=== PATIENT | female | born 1940 | race Caucasian/White ===

== ENCOUNTER 2020-05-24 07:39 | Emergency (ER) | payer MEDICARE, OTHER ==
[~2020-05-24] VITALS: Ht 167.6 cm; Wt 79.4 kg
[~2020-05-24 07:39] MED LIST: METFORMIN HCL500 MG; PAROXETINE HCL20 MG; RAMIPRIL10 MG; SIMVASTATIN40 MG; TRIAMTERENE-HCTZ1 EA
[2020-05-24] MEDS ORDERED: ASPIRIN 81 MG CHEW TAB PO ONE (08:00)
[2020-05-24 08:16] LABS: BASOPHILS # (AUTO) 0.1 (0.0-0.1); BASOPHILS % 0.5 % (0.0-1.0); EOSINOPHILS # (AUTO) 0.1 (0.0-0.4); EOSINOPHILS % 0.5 % (0.0-6.0); HEMOGLOBIN 15.8 g/dL (12.0-16.0); LYMPHOCYTES # (AUTO) 2.2 (1.0-3.2); LYMPHOCYTES % 16.5 % (18.0-39.1); MEAN CORPUSCULAR HEMOGLOBIN 25.9 pg (28-32); MEAN CORPUSCULAR HGB CONC 32.9 g/dL (31-35); MEAN CORPUSCULAR VOLUME 78.6 fL (81-99); MONOCYTES # (AUTO) 0.8 (0.2-0.8); MONOCYTES % 6.2 % (4.4-11.3); NEUTROPHILS # (AUTO) 9.9 (2.1-6.9); NEUTROPHILS % 75.8 % (38.7-80.0); PLATELET COUNT 189 x10e3/uL (140-360); RED BLOOD COUNT 6.11 x10e6/uL (3.6-5.1)
[2020-05-24 08:27] LABS: INR 0.89; PARTIAL THROMBOPLASTIN TIME 27.2 seconds (23.8-35.5); PROTHROMBIN TIME 12.5 seconds (11.9-14.5)
[2020-05-24] MEDS ORDERED: ENALAPRILAT DIHYDRATE 1.25 MG/ML 2ML VIAL IV STA (08:28)
[2020-05-24] MEDS ORDERED: METOPROLOL TARTRATE 50 MG TAB PO ONE (08:30)
[2020-05-24 08:36] LABS: ALBUMIN 3.7 g/dL (3.5-5.0); ALBUMIN/GLOBULIN RATIO 1.1 (0.8-2.0); ANION GAP 21.7 mmol/L (8-16); CALCIUM 9.8 mg/dL (8.4-10.2); CREATININE, SERUM 1.38 mg/dL (0.57-1.11); POTASSIUM 3.7 mmol/L (3.5-5.1)
[2020-05-24 08:43] LABS: CREATINE KINASE MB 4.4 ng/mL (0-5.0)
--- NOTE | 2020-05-24 08:57 | Diagnostic Imaging Report ---
EXAMINATION: CHEST SINGLE (PORTABLE) INDICATION: Chest pain COMPARISON: None FINDINGS: LINES/TUBES:EKG leads overlie the chest. LUNGS:The lungs are well-inflated. 9 mm high density right upper lung nodule, likely a calcified granuloma. No focal consolidation or pulmonary edema. PLEURA:No pleural effusion or pneumothorax. MEDIASTINUM:The cardiomediastinal silhouette appears normal in size and shape. BONES/SOFT TISSUES:No acute osseous injury. ABDOMEN:No free air under the diaphragm. IMPRESSION: No focal pneumonia or pulmonary edema. Signed by: Brooks Orr MD on 05/24/2020 8:53 AM
--- NOTE | 2020-05-24 09:44 | Emergency Department Note ---
History of Present Illnes History of Present Illness Chief Complaint: Respiratory History of Present Illness This is a 79 year old female PATIENT IN FROM HOME WITH COMPLAINTS OF SHORTNESS OF BREATH X 3 WEEKS, WORSE WITH EXERTION. PATIENT DENIES CHEST PAIN, DENIES COUGH OR CONGESTION, DENIES FEVER, DENIES ANY TRAVEL. PATIENT APPEARS IN NO DISTRESS, RESP EVEN AND NONLABORED, O2 SATS 99% ON ROOM AIR. Historian: Patient Arrival Mode: Car Veneer Matcher Required: No Onset (how long ago): week(s) (3) Radiation: Reports non-radiation Severity: mild Onset quality: gradual Duration (how long): week(s) (3) Timing of current episode: intermittent Progression: waxing and waning Chronicity: new Context: Denies recent illness Relieving factors: none Exacerbating factors: movement Associated symptoms: Reports denies other symptoms, Reports weakness, Reports other (BAR, NO ORTHOPNEA/PND); Denies chest pain, Denies cough Treatments prior to arrival: none Past Medical/Family History Physician Review I have reviewed the patient's past medical and family history. Any updates have been documented here. Past Medical History Recent Fever: No Clinical Suspicion of Infectio: No New/Unexplained Change in Ment: No Past Medical History: Hypertension, Hyperlipedemia, Chronic Kidney Disease Other Medical History: HIGH CHOLESTEROL Past Surgical History: Hysterectomy Social History Smoking Cessation: Never Smoker Counseling Performed: No Alcohol Use: None Any Illegal Drug Use: No TB Exposure/Symptoms: No Physically hurt or threatened: No Family History Family history of heart diseas: No Other Last Tetanus: UNKNOWN Any Pre-Existing Lines (PICC,: No Review of Systems Review of Systems Constitutional: Reports as per HPI, Reports weakness EENTM: Reports no symptoms Cardiovascular: Reports no symptoms Respiratory: Reports as per HPI, Reports dyspnea, Reports dyspnea on exertion Gastrointestinal: Reports no symptoms Genitourinary: Reports no symptoms Musculoskeletal: Reports no symptoms Integumentary: Reports no symptoms Neurological: Reports no symptoms Psychological: Reports no symptoms Endocrine: Reports no symptoms Hematological/Lymphatic: Reports no symptoms Physical Exam Related Data Allergies: Coded Allergies: Oxycodone Terephthalate (Verified Allergy, Unknown, 05/24/20) oxycodone HCl (Verified Allergy, Unknown, 05/24/20) Triage Vital Signs Vital Signs Date Time Temp Pulse Resp B/P (MAP) Pulse Ox O2 Delivery O2 Flow Rate FiO2 05/24/20 07:46 98.1 88 22 181/100 99 Room Air Vital signs reviewed: Yes Physical Exam CONSTITUTIONAL Constitutional: Present well-developed, Present well-nourished HENT HENT: Present normocephalic, Present atraumatic, Present oropharynx clear/moist, Present nose normal HENT L/R: Present left ext ear normal, Present right ext ear normal EYES Eyes: Reports PERRL, Reports conjunctivae normal NECK Neck: Present ROM normal PULMONARY Pulmonary: Present effort normal, Present breath sounds normal; Absent respiratory distress, Absent rales, Absent rhonchi, Absent chest tenderness CARDIOVASCULAR Cardiovascular: Present regular rhythm, Present heart sounds normal, Present capillary refill normal, Present normal rate, Present LLE edema (TRACE), Present RLE edema (TRACE) GASTROINTESTINAL Abdominal: Present soft, Present nontender, Present bowel sounds normal; Absent tender GENITOURINARY Genitourinary: Present exam deferred SKIN Skin: Present warm, Present dry MUSCULOSKELETAL Musculoskeletal: Present ROM normal NEUROLOGICAL Neurological: Present alert, Present oriented x 3, Present no gross motor or sensory deficits PSYCHOLOGICAL Psychological: Present mood/affect normal, Present judgement normal Results Laboratory Result Diagram: 05/24/20 0800 05/24/20 0800 Laboratory Laboratory Tests Test 05/24/20 08:00 White Blood Count 13.12 x10e3/uL (4.8-10.8) Red Blood Count 6.11 x10e6/uL (3.6-5.1) Hemoglobin 15.8 g/dL (12.0-16.0) Hematocrit 48.0 % (34.2-44.1) Mean Corpuscular Volume 78.6 fL (81-99) Mean Corpuscular Hemoglobin 25.9 pg (28-32) Mean Corpuscular Hemoglobin Concent 32.9 g/dL (31-35) Red Cell Distribution Width 17.0 % (11.7-14.4) Platelet Count 189 x10e3/uL (140-360) Neutrophils (%) (Auto) 75.8 % (38.7-80.0) Lymphocytes (%) (Auto) 16.5 % (18.0-39.1) Monocytes (%) (Auto) 6.2 % (4.4-11.3) Eosinophils (%) (Auto) 0.5 % (0.0-6.0) Basophils (%) (Auto) 0.5 % (0.0-1.0) Neutrophils # (Auto) 9.9 (2.1-6.9) Lymphocytes # (Auto) 2.2 (1.0-3.2) Monocytes # (Auto) 0.8 (0.2-0.8) Eosinophils # (Auto) 0.1 (0.0-0.4) Basophils # (Auto) 0.1 (0.0-0.1) Absolute Immature Granulocyte (auto 0.07 x10e3/uL (0-0.1) Prothrombin Time 12.5 seconds (11.9-14.5) Prothromb Time International Ratio 0.89 Activated Partial Thromboplast Time 27.2 seconds (23.8-35.5) Sodium Level 140 mmol/L (136-145) Potassium Level 3.7 mmol/L (3.5-5.1) Chloride Level 105 mmol/L (98-107) Carbon Dioxide Level 17 mmol/L (22-29) Anion Gap 21.7 mmol/L (8-16) Blood Urea Nitrogen 24 mg/dL (7-26) Creatinine 1.38 mg/dL (0.57-1.11) Estimat Glomerular Filtration Rate 37 ML/MIN (60-) BUN/Creatinine Ratio 17 (6-25) Glucose Level 227 mg/dL (74-118) Calcium Level 9.8 mg/dL (8.4-10.2) Total Bilirubin 0.7 mg/dL (0.2-1.2) Aspartate Amino Transf (AST/SGOT) 15 IU/L (5-34) Alanine Aminotransferase (ALT/SGPT) 16 IU/L (0-55) Alkaline Phosphatase 78 IU/L (40-150) Creatine Kinase 47 IU/L (29-168) Creatine Kinase MB 4.40 ng/mL (0-5.0) Troponin I 0.019 ng/mL (0-0.300) B-Type Natriuretic Peptide 489.7 pg/mL (0-100) Total Protein 7.2 g/dL (6.5-8.1) Albumin 3.7 g/dL (3.5-5.0) Globulin 3.5 g/dL (2.3-3.5) Albumin/Globulin Ratio 1.1 (0.8-2.0) Lab results reviewed: Yes Imaging Imaging results reviewed: Yes Impressions EXAMINATION: CHEST SINGLE (PORTABLE) INDICATION: Chest pain COMPARISON: None FINDINGS: LINES/TUBES:EKG leads overlie the chest. LUNGS:The lungs are well-inflated. 9 mm high density right upper lung nodule, likely a calcified granuloma. No focal consolidation or pulmonary edema. PLEURA:No pleural effusion or pneumothorax. MEDIASTINUM:The cardiomediastinal silhouette appears normal in size and shape. BONES/SOFT TISSUES:No acute osseous injury. ABDOMEN:No free air under the diaphragm. IMPRESSION: No focal pneumonia or pulmonary edema. Signed by: Brooks Orr MD on 05/24/2020 8:53 AM Procedures 12 Lead ECG Interpretation ECG Interpretation : ECG: ECG 1 Veneer Matcher: Interpreted by ED physician Date: May 24, 2020 Time: 07:45 Rhythm: sinus rhythm QRS axis: right T wave inversion: V1, V2, V3, V4 T waves flattening: II, III, aVF, V5 Clinical Impression: abnormal ECG Additional Comments PROLONGED QT Assessment & Plan Medical Decision Making MDM SOB/BAR X 3 WEEKS, NO CP - CHECK CBC, CHEM, ECG, CARDIACS, BNP, CXR - R/O STEMI, NSTEMI, CHF, PNEUMONIA Reassessment Reassessment BNP ELEVATED - STAT ECHO ORDERED - DR Yeni GONSALEZ READ ECHO NORMAL (VERBAL REPORT) AND SAW PT. WE DO NOT KNOW WHY PT FEELS SOB BUT SHE LOOKS GOOD, VSS AND O2 SAT NORMAL, NL CXR - I EXPLAINED TO PT THAT DUE TO HURRICANE CONNIE WE HAVE NO BEDS AVAILABLE HERE AND IF ADMITTED WE WOULD NEED TO TRANSFER TO ANOTHER [facility] - PT WANTS TO GO HOME - F/U PCP AUDREY AND DR Yeni GONSALEZ, TAKE MEDS DIRECTED Assessment & Plan Final Impression: (1) Dyspnea Depart Disposition: HOME, SELF-CARE Last Vital Signs Date Time Temp Pulse Resp B/P (MAP) Pulse Ox O2 Delivery O2 Flow Rate FiO2 05/24/20 08:43 75 25 123/67 97 Room Air 05/24/20 08:06 98.1 Home Meds Reported Medications Paroxetine Hcl (PAROXETINE HCL) 20 Mg Tablet, DAILY 05/01/13 Simvastatin (SIMVASTATIN) 40 Mg Tablet, DAILY 05/01/13 Ramipril (RAMIPRIL) 10 Mg Capsule, DAILY 05/01/13 Triamterene/Hctz (TRIAMTERENE-HCTZ 37.5-25 MG TB) 1 Ea Tab, DAILY 05/01/13 Metformin Hcl (METFORMIN HCL) 500 Mg Tablet, BID 05/01/13 Medications in the ED Aspirin 81 mg PRN ONCE PO ; Start 05/24/20 at 08:00; Stop 05/24/20 at 08:01 Metoprolol Tartrate 50 mg ONCE ONCE PO ; Start 05/24/20 at 08:30; Stop 05/24/20 at 08:31 ANGELES ROMAN MD May 24, 2020 09:44
== END 2020-05-24 10:52 | disposition home or self-care (01) ==
LOC: ER 07:43
DX: R06.00 Dyspnea, unspecified (principal); I10 Essential (primary) hypertension; E78.5 Hyperlipidemia, unspecified; N18.9 Chronic kidney disease, unspecified; E78.00 Pure hypercholesterolemia, unspecified
CPT/HCPCS: 36415; 71045; 80053; 82550; 82553; 83880; 84484; 85025; 85610; 85730; 93005; 93306; 99284; U0002

== ENCOUNTER 2020-06-05 09:11 | Inpatient (IN) | payer MEDICARE, OTHER ==
[~2020-06-05] VITALS: Ht 167.6 cm; Wt 79.4 kg
[2020-06-05] MEDS ORDERED: CEFEPIME 1GM/NS 0.9% 50 ML 50 ML IV SCH (09:37)
--- NOTE | 2020-06-05 09:45 | NUR ---
asked charge nurse to call for venous doppler. dye house vat worker then notified of venous doppler order.
[2020-06-05 09:47] LABS: BASOPHILS # (AUTO) 0.1 (0.0-0.1); BASOPHILS % 0.6 % (0.0-1.0); EOSINOPHILS # (AUTO) 0.1 (0.0-0.4); EOSINOPHILS % 0.8 % (0.0-6.0); HEMATOCRIT 48.3 % (34.2-44.1); HEMOGLOBIN 15.7 g/dL (12.0-16.0); LYMPHOCYTES # (AUTO) 1.8 (1.0-3.2); LYMPHOCYTES % 17.7 % (18.0-39.1); MEAN CORPUSCULAR HEMOGLOBIN 25.9 pg (28-32); MEAN CORPUSCULAR HGB CONC 32.5 g/dL (31-35); MEAN CORPUSCULAR VOLUME 79.7 fL (81-99); MONOCYTES # (AUTO) 0.8 (0.2-0.8); MONOCYTES % 7.5 % (4.4-11.3); NEUTROPHILS # (AUTO) 7.5 (2.1-6.9); NEUTROPHILS % 72.9 % (38.7-80.0); PLATELET COUNT 251 x10e3/uL (140-360); RED BLOOD COUNT 6.06 x10e6/uL (3.6-5.1); RED CELL DISTRIBUTION WIDTH 16.9 % (11.7-14.4)
--- NOTE | 2020-06-05 09:51 | NUR ---
Pt notifed of need for urine per md order. Pt unable to void at this time.
--- NOTE | 2020-06-05 09:54 | NUR ---
notified pt unable to void, states to wait 15 mins and ask again.
[2020-06-05 09:57] LABS: INR 0.83; PROTHROMBIN TIME 11.8 seconds (11.9-14.5)
--- NOTE | 2020-06-05 10:00 | NUR ---
venous doppler tech at bedside.
--- NOTE | 2020-06-05 10:04 | Emergency Department Note ---
History of Present Illnes History of Present Illness Chief Complaint: General Medicine Complaints History of Present Illness This is a 79 year old female arrived to the ED with complaints of right lower extremity swelling and increased warmth. Pt states she is concerned of her potassium being low as well. Historian: Patient Arrival Mode: Car Onset (how long ago): day(s) Severity: mild Onset quality: gradual Duration (how long): day(s) Progression: worsening Chronicity: new Relieving factors: none Exacerbating factors: none Past Medical/Family History Physician Review I have reviewed the patient's past medical and family history. Any updates have been documented here. Past Medical History Recent Fever: No Clinical Suspicion of Infectio: No New/Unexplained Change in Ment: No Past Medical History: Hypertension, Hyperlipedemia, Chronic Kidney Disease Other Medical History: HIGH CHOLESTEROL Past Surgical History: Hysterectomy Social History Smoking Cessation: Never Smoker Other Last Tetanus: UNKNOWN Review of Systems Review of Systems Constitutional: Reports no symptoms EENTM: Reports no symptoms Cardiovascular: Reports no symptoms Respiratory: Reports no symptoms Gastrointestinal: Reports no symptoms Genitourinary: Reports no symptoms Musculoskeletal: Reports as per HPI, Reports joint swelling Integumentary: Reports no symptoms Neurological: Reports no symptoms Psychological: Reports no symptoms Endocrine: Reports no symptoms Hematological/Lymphatic: Reports no symptoms Physical Exam Related Data Allergies: Coded Allergies: Oxycodone Terephthalate (Verified Allergy, Unknown, 05/24/20) oxycodone HCl (Verified Allergy, Unknown, 05/24/20) Triage Vital Signs Vital Signs Date Time Temp Pulse Resp B/P (MAP) Pulse Ox O2 Delivery O2 Flow Rate FiO2 06/05/20 09:36 98.1 61 14 165/83 100 Room Air Vital signs reviewed: Yes Physical Exam CONSTITUTIONAL Constitutional: Present well-developed, Present well-nourished HENT HENT: Present normocephalic, Present atraumatic, Present oropharynx alyce ar/moist, Present nose normal HENT L/R: Present left ext ear normal, Present right ext ear normal EYES Eyes: Reports PERRL, Reports conjunctivae normal NECK Neck: Present ROM normal PULMONARY Pulmonary: Present effort normal, Present breath sounds normal CARDIOVASCULAR Cardiovascular: Present regular rhythm, Present heart sounds normal, Present capillary refill normal, Present normal rate GASTROINTESTINAL Abdominal: Present soft, Present nontender, Present bowel sounds normal GENITOURINARY Genitourinary: Present exam deferred SKIN Skin: Present warm, Present dry MUSCULOSKELETAL Musculoskeletal: Present tenderness NEUROLOGICAL Neurological: Present alert, Present oriented x 3, Present no gross motor or sensory deficits PSYCHOLOGICAL Psychological: Present mood/affect normal, Present judgement normal Results Laboratory Lab results reviewed: Yes Assessment & Plan Medical Decision Making CARLEY 79 yo F arrived to the ED with complaints of rt lower extremity swelling- pt states symptoms started gradually. Pt states she's also concerned about her potassium level. Assessment & Plan Final Impression: (1) Dyspnea (2) Cellulitis Last Vital Signs Date Time Temp Pulse Resp B/P (MAP) Pulse Ox O2 Delivery O2 Flow Rate FiO2 06/05/20 09:36 98.1 61 14 165/83 100 Room Air Home Meds Reported Medications Paroxetine Hcl (PAROXETINE HCL) 20 Mg Tablet, DAILY 05/01/13 Simvastatin (SIMVASTATIN) 40 Mg Tablet, DAILY 05/01/13 Ramipril (RAMIPRIL) 10 Mg Capsule, DAILY 05/01/13 Triamterene/Hctz (TRIAMTERENE-HCTZ 37.5-25 MG TB) 1 Ea Tab, DAILY 05/01/13 Metformin Hcl (METFORMIN HCL) 500 Mg Tablet, BID 05/01/13 Medications in the ED Cefepime HCl 50 ml @ 100 mls/hr Q24H STAT IV ; Start 06/05/20 at 09:37; Stop 06/05/20 at 10:06; Status AUSTEN PATRICK, Jun 05, 2020 10:04
[2020-06-05 10:07] LABS: ALBUMIN 4.5 g/dL (3.5-5.0); ALBUMIN/GLOBULIN RATIO 1.4 (0.8-2.0); ANION GAP 18.3 mmol/L (8-16); CREATININE, SERUM 1.37 mg/dL (0.57-1.11); POTASSIUM 4.3 mmol/L (3.5-5.1)
[2020-06-05] MEDS ORDERED: ENOXAPARIN SODIUM INJ 100 MG/ML SYR SC SCH (10:15)
--- OUTSIDE RECORDS SUMMARY | 2020-06-05 10:16 | XMS REPORT | Continuity of Care Document ---
Author Author [facility] Organization [facility] Address [address] [place] [address] Phone Unavailable Care Team Providers [facility] [employer] Teacher Name Role Phone Dana ROMAN Attphys Unavailable Problems This patient has no known problems. Allergies, Adverse Reactions, Alerts This patient has no known allergies or adverse reactions. Medications This patient has no known medications. Procedures This patient has no known procedures. Results Test Description Test Time Test Comments Results Result Comments Source CHEST SINGLE (PORTABLE) 2020-05-24 08:50:00 [place] [address] Patient Name: ANDER RAO MR #: [id number] : 1940 Age/Sex: 79/F Req #: [id number] Adm Physician: Ordered by: ANGELES ROMAN MD Report #: [id number] Location: ER Room/Bed: Procedure: [id number] DX/CHEST SINGLE (PORTABLE) Exam Date: 05/24/20 Exam Time: 0820 REPORT STATUS: Signed EXAMINATION: CHEST SINGLE (PORTABLE) INDICATION: Chest pain COMPARISON: None FINDINGS: LINES/TUBES:EKG leads overlie the chest. LUNGS:The lungs are well-inflated. 9 mm high density right upper lung nodule, likely a calcified granuloma. No focal consolidation or pulmonary edema. PLEURA:No pleural effusion or pneumothorax. MEDIASTINUM:The cardiomediastinal silhouette appears normal in size and shape. BONES/SOFT TISSUES:No acute osseous injury. ABDOMEN:No free air under the diaphragm. IMPRESSION: No focal pneumonia or pulmonary edema. Signed by: Chaitanya Lund MD on 05/24/2020 8:53 AM Dictated By: CHAITANYA LUND MD 2 Transcribed By: SIDNEY on 05/24/20852 COPY TO: ANGELES ROMAN MD
[2020-06-05 10:18] LABS: B-TYPE NATRIURETIC PEPTIDE2 183.4 pg/mL (0-100)
--- NOTE | 2020-06-05 10:23 | NUR ---
venous doppler tech states blood clot noted, notified and went to talk with pt.
[2020-06-05] MEDS ORDERED: ENOXAPARIN INJ 80 MG/0.8 ML SYR SC ONE ×2 (10:25→21:49)
--- NOTE | 2020-06-05 10:28 | NUR ---
Inquired to md pt concerns if blood clot could be in chest d/t finding of dvt. Pt states here previously for sob and had no findings to explain and was discharged with f/u with dr palma. Md states no d/t no tachycardia, no hypoxia, no tachypnenia. Pt inquired to rn, and explained md answer to pt. pt states verbal understanding.
[2020-06-05 10:37] LABS: CREATINE KINASE MB 4.6 ng/mL (0-5.0)
--- NOTE | 2020-06-05 10:41 | NUR ---
notified polygraph technician of xray cancel. Pt going to go home per Dr. Soto.
[2020-06-05 10:43] LABS: CLARITY,URINE SL CLOUDY (CLEAR); COLOR,URINE YELLOW (YELLOW); LEUKOCYTE ESTERASE ,URINE NEGATIVE (NEGATIVE); NITRITE,URINE NEGATIVE (NEGATIVE)
[2020-06-05 10:44] LABS: BACTERIA,URINE RARE /HPF; BILIRUBIN,URINE NEGATIVE (NEGATIVE); EPITHELIAL CELLS,URINE FEW /LPF; KETONES,URINE NEGATIVE (NEGATIVE); PROTEIN,URINE DIPSTICK NEGATIVE (NEGATIVE); RBC,URINE 0-5 /HPF (0-5); URINE UROBILINOGEN 0.2 mg/dL (0.2 - 1); WBC,URINE (MAN) 0-5 /HPF (0-5)
[2020-06-05] MEDS ORDERED: DIAZEPAM 5 MG TAB PO ONE (10:45)
[2020-06-05] MEDS ORDERED: METHYLPREDNISOLONE SOD SUCC 125 MG/2ML VIAL IV ONE (10:45)
[2020-06-05] MEDS ORDERED: KETOROLAC TROMETHAMINE 60 MG/2 ML VIAL IM ONE (10:45)
[2020-06-05] MEDS ORDERED: DIAZEPAM 2 MG TAB PO ONE (10:45)
[2020-06-05] MEDS ORDERED: XARELTO10 MG PO (10:52)
--- NOTE | 2020-06-05 11:02 | NUR ---
Per er md, Dr. Soto, Pt discharging home. Per md, cancel ct and xray and solumedrol, valium and toradol. All verbal orders being taken off by . All orders Read Back and verified inside nursing station.
--- NOTE | 2020-06-05 11:05 | NUR ---
Pt explained discharge orders and directions. Pt educated on all information, states verbal understanding and signed discharge paperwork. Pt assisted getting dressed. Pt ambulatory with steady gait out at her discharge. Pt does have an appointment with Dr. Chris this and will keep appointment.
--- NOTE | 2020-06-05 12:06 | NUR ---
Pt returned to er. Dr Soto spoke with pt's daughter voicing concerns of CT for chest. Notified er director. Pt's discharge status undone and chart re-activated. Pt back to room three. Pt to have CT chest done. radiological technician Daniela notified per .
--- NOTE | 2020-06-05 12:09 | NUR ---
diet tray given in pt room per er dr spears. pt instructed not to eat yet, per er .
--- NOTE | 2020-06-05 12:20 | NUR ---
pt back on monitors, new iv placement done for cat scan order.
[2020-06-05] MEDS ORDERED: SODIUM CHLORIDE 0.9% 1000ML 1,000 ML IV STA (12:45)
[2020-06-05] MEDS ORDERED: SODIUM CHLORIDE 0.9% 1000ML 1,000 ML ONE (12:54)
[2020-06-05] MEDS ORDERED: SODIUM CHLORIDE 0.9% 50ML 50 ML ONE (13:20)
[2020-06-05] MEDS ORDERED: IOPAMIDOL 370 MG/ML 200 ML INFUS..BTL INJ ONE (13:21)
--- OUTSIDE RECORDS SUMMARY | 2020-06-05 13:43 | XMS REPORT | Continuity of Care Document ---
Author Author [facility] Organization [facility] Address [address] [place] [address] Phone Unavailable Care Team Providers Care Nurse Reviewer Name Role Phone DO ASHLEY VENTURA PCP Dana ROMAN Attphys Unavailable Payers Payer Name Policy Type Policy Number Effective Date Expiration Date Liliana Hollis Medicare Complete [id number] [facility] Problems Condition Name Condition Details Condition Category Status Onset Date Resolution Date Last Treatment Date Treating Clinician Comments Source Dyspnea Problem Active [facility] Cellulitis Problem Active [facility] Deep vein thrombosis (DVT) during Problem Active [facility] Allergies, Adverse Reactions, Alerts Allergy Name Allergy Type Status Severity Reaction(s) Onset Date Inacti ve Date Treating Clinician Comments Source oxycodone HCl Allergy to substance Active 2020-05-24 00:00: 00 [facility] Oxycodone Terephthalate Allergy to substance Active 202 00:00:00 [facility] Social History Social Habit Start Date Stop Date Quantity Comments Source Sex Assigned At 1940 00:00:00 1940 00:[birth year]:00 Female [facility] Medications Ordered Medication Name Filled Medication Name Start Date Stop Da te Current Medication? Ordering Clinician Indication Dosage Frequency Signature (SIG) Comments Components Source Rivaroxaban (Xarelto) 10 Mg TABLET Rivaroxaban (Xarelto) 10 Mg TABLET 2020-06-05 10:52:00 Yes 15 Twice A Day [facility] Metformin Hcl Metformin Hcl Yes Twice A Day [facility] Paroxetine Hcl Paroxetine Hcl Yes Daily [facility] Ramipril Ramipril Yes Daily [facility] Simvastatin Simvastatin Yes Daily [facility] Triamterene/Hctz (Triamterene-Hctz 37.5-25 Mg Tb) 1 Ea TAB Triamterene/Hctz (Triamterene-Hctz 37.5-25 Mg Tb) 1 Ea TAB Yes Daily [facility] Vital Signs Vital Name Observation Time Observation Value Comments Source Weight 2020-06-05 09:36:00 175 [lb_av] [facility] BMI (Body Mass Index) 2020-06-05 09:36:00 28.2 kg/m2 [facility] Procedures This patient has no known procedures. Plan of Care Planned Activity Planned Date Details Comments Source Instructions Deep Vein Thrombosis [facility] Encounters Start Date/Time End Date/Time [facility] ID Source 2020-06-05 09:30:00 2020-06-05 11:09:00 Departed Emergency Room [facility] [id number] [facility] dical Waldo 2020-05-24 07:43:00 2020-05-24 10:52:00 Departed Emergency Room 1 ANGELES ROMAN [facility] [id number] [facility] Results Test Description Test Time Test Comments Results Result Comments Source Urine color determination 2020-06-05 09:40:00 Test Item Urine Color (test code = 5778-6) YELLOW YELLOW [facility] [id number] 09:40:00* Test Item Value Reference Range Interpretation Comments Urine Clarity (test code = 80768-2) SL [facility]OUDY [facility] Test strip 2020-06-05 09:40:00* Test Item Value Reference Range Interpretation Comments Urine Specific Chili (test code = 5811-5) 1.020 1.010-1.02 5 [facility] pH measurement by automated test [id number] 09:40:00* Test Item Value Reference Range Interpretation Comments Urine pH (test code = 81720-2) 7 5-7 [facility] leukocyte esterase detection by ftxnzbyd9428-77-41 09:40:00* Test Item Value Reference Range Interpretation Comments Urine Leukocyte Esterase (test code = 5799-2) NEGATIVE NEGATIVE [facility] nitrite skatbkoza4118-89-12 09:40:00* Test Item Value Reference Range Interpretation Comments Urine Nitrite (test code = 12910-2) NEGATIVE NEGATIVE [facility] protein measurement by test strip (mass/volume)2020-06-05 09:40:00* Test Item Value Reference Range Interpretation Comments Urine Protein (test code = 5804-0) NEGATIVE NEGATIVE [facility] glucose xthbkvsqi9909-02-22 09:40:00* Test Item Value Reference Range Interpretation Comments Urine Glucose (UA) (test code = 2349-9) NEGATIVE NEGATIVE [facility] Hospital[facility]rine ketones detection by automated test azwyo4644-56-69 09:40:00* Test Item Value Reference Range Interpretation Comments Urine Ketones (test code = 05989-4) NEGATIVE NEGATIVE [facility] Hospital[facility]rine urobilinogen measurement by test strip (mass/volume)2020-06-05 09:40:00* Test Item Value Reference Range Interpretation Comments Urine Urobilinogen (test code = 08004-1) 0.2 0.2-1 [facility] total bilirubin measurement (mass/volume)2020-06-05 09:40:00* Test Item Value Reference Range Interpretation Comments Urine Bilirubin (test code = 1978-6) NEGATIVE NEGATIVE [facility] HospitalU[facility] erythrocytes fflrmfbsu3334-65-01 09:40:00* Test Item Value Reference Range Interpretation Comments Urine Blood (test code = 97157-4) NEGATIVE NEGATIVE [facility] HospitalAutomated urine sediment leukocyte count by microscopy (number/high power field)2020-06-05 09:40:00* Test Item Value Reference Range Interpretation Comments Urine WBC (test code = 5821-4) 0-5 0-5 [facility] HospitalErythrocytes detection in urine sediment by light ubrnxfvqxp6116-09-66 09:40:00* Test Item Value Reference Range Interpretation Comments Urine RBC (test code = 95530-3) 0-5 0-5 [facility] HospitalBacteria detection in urine sediment by light swnyckocrl7858-11-11 09:40:00* Test Item Value Reference Range Interpretation Comments Urine Bacteria (test code = 65030-6) RARE NONE [facility] HospitalEpithelial cells detection in urine sediment by light jcftdyxbnf0803-09-66 09:40:00* Test Item Value Reference Range Interpretation Comments Urine Epithelial Cells (test code = 61406-0) FEW NONE [facility] HospitalBlood leukocytes automated count (number/volume)2020-06-05 09:20:00* Test Item Value Reference Range Interpretation Comments White Blood Count (test code = 6690-2) 10.32 4.8-10.8 [facility]Blood erythrocytes automated count (number/volume)2020-06-05 09:20:00* Test Item Value Reference Range Interpretation Comments Red Blood Count (test code = 789-8) 6.06 3.6-5.1 [facility]Blood hemoglobin measurement (moles/volume)2020-06-05 09:20:00* Test Item Value Reference Range Interpretation Comments Hemoglobin (test code = 16016-8) 15.7 12.0-16.0 [facility] HospitalAutomated blood hematocrit (volume fraction)2020-06-05 09:20:00* Test Item Value Reference Range Interpretation Comments Hematocrit (test code = 4544-3) 48.3 34.2-44.1 [facility] HospitalAutomated erythrocyte mean corpuscular rzyoee9573-23-22 09:20:00* Test Item Value Reference Range Interpretation Comments Mean Corpuscular Volume (test code = 787-2) 79.7 81-99 [facility] HospitalAutomated erythrocyte mean corpuscular hemoglobin (mass per erythrocyte)2020-06-05 09:20:00* Test Item Value Reference Range Interpretation Comments Mean Corpuscular Hemoglobin (test code = 785-6) 25.9 28-32 [facility] HospitalAutomated erythrocyte mean corpuscular hemoglobin concentration measurement (mass/volume)2020-06-05 09:20:00* Test Item Value Reference Range Interpretation Comments Mean Corpuscular Hemoglobin Concent (test code = 786-4) 32.5 31-35 [facility] HospitalRDW KdjPq-Gdv1094-30-07 09:20:00* Test Item Value Reference Range Interpretation Comments Red Cell Distribution Width (test code = 36852-4) 16.9 11.7 -14.4 [facility] HospitalAutomated blood platelet count (count/volume)2020-06-05 09:20:00* Test Item Value Reference Range Interpretation Comments Platelet Count (test code = 777-3) 251 140-360 [facility] HospitalAutomated blood segmented neutrophil count as percentage of total rxgagadlfm6335-33-49 09:20:00* Test Item Value Reference Range Interpretation Comments Neutrophils (%) (Auto) (test code = 71202-3) 72.9 38.7-80.0 [facility] HospitalAutomated blood lymphocyte count as percentage ot total efswneumfg5527-24-68 09:20:00* Test Item Value Reference Range Interpretation Comments Lymphocytes (%) (Auto) (test code = 736-9) 17.7 18.0-39.1 [facility] HospitalAutomated blood monocyte count as percentage of total udujbbteyu9483-66-57 09:20:00* Test Item Value Reference Range Interpretation Comments Monocytes (%) (Auto) (test code = 5905-5) 7.5 4.4-11.3 [facility] HospitalAutomated blood eosinophil count as percentage of total envqohvhjr1404-00-32 09:20:00* Test Item Value Reference Range Interpretation Comments Eosinophils (%) (Auto) (test code = 713-8) 0.8 0.0-6.0 [facility] HospitalAutomated blood basophil count as percentage of total bdssnodlst5071-83-46 09:20:00* Test Item Value Reference Range Interpretation Comments Basophils (%) (Auto) (test code = 706-2) 0.6 0.0-1.0 [facility] HospitalFluoroscopic procedure less than one hour wqtuhkaa7933-75-94 09:20:00* Test Item Value Reference Range Interpretation Comments IM GRANULOCYTES % (test code = IM GRANULOCYTES %) 0.5 0.0- 1.0 [facility] HospitalAutomated blood neutrophil count 2020-06-05 09:20:00* Test Item Value Reference Range Interpretation Comments Neutrophils # (Auto) (test code = 751-8) 7.5 2.1-6.9 [facility] HospitalBlood lymphocytes count (number/volume) 2020-06-05 09:20:00* Test Item Value Reference Range Interpretation Comments Lymphocytes # (Auto) (test code = 16726-7) 1.8 1.0-3.2 [facility] monocytes automated count (number/volume)2020-06-05 09:20:00* Test Item Value Reference Range Interpretation Comments Monocytes # (Auto) (test code = 742-7) 0.8 0.2-0.8 [facility] HospitalAutomated blood eosinophil count 2020-06-05 09:20:00* Test Item Value Reference Range Interpretation Comments Eosinophils # (Auto) (test code = 711-2) 0.1 0.0-0.4 [facility] HospitalAutomated blood basophil count (count/volume)2020-06-05 09:20:00* Test Item Value Reference Range Interpretation Comments Basophils # (Auto) (test code = 704-7) 0.1 0.0-0.1 [facility] HospitalFluoroscopic procedure less than one hour dmctotkb4138-66-09 09:20:00* Test Item Value Reference Range Interpretation Comments Absolute Immature Granulocyte (auto (noman t code = Absolute Immature Granulocyte (auto) 0.05 0-0.1 [facility] HospitalProthrombin time (PT) in platelet poor plasma by coagulation srdry7169-26-62 09:20:00* Test Item Value Reference Range Interpretation Comments Prothrombin Time (test code = 5902-2) 11.8 11.9-14.5 [facility] HospitalINR in Platelet poor plasma by Coagulation wzmku3312-41-56 09:20:00* Test Item Value Reference Range Interpretation Comments Prothromb Time International Ratio (test code = 6301-6) 0.83 Oral Anticoagulant Therapy INR Values:1. Low Intensity Therapy 1.5 - 2.02 . Moderate Intensity Therapy 2.0 - 3.03. High Intensity Therapy(1) 2.5 - 3. 54. High Intensity Therapy(2) 3.0 - 4.05. Panic Value INR > 5.0 [facility] sodium measurement (moles/volume)2020-06-05 09:20:00* Test Item Value Reference Range Interpretation Comments Sodium Level (test code = 2951-2) 136 136-145 [facility] plasma potassium measurement (moles/volume)2020-06-05 09:20:00* Test Item Value Reference Range Interpretation Comments Potassium Level (test code = 2823-3) 4.3 3.5-5.1 [facility] chloride measurement (moles/volume)2020-06-05 09:20:00* Test Item Value Reference Range Interpretation Comments Chloride Level (test code = 2075-0) 103 98-107 [facility] or plasma carbon dioxide, total measurement (moles/volume)2020-06-05 09:20:00* Test Item Value Reference Range Interpretation Comments Carbon Dioxide Level (test code = 2028-9) 19 22-29 [facility] or plasma anion nan7924-38-11 09:20:00* Test Item Value Reference Range Interpretation Comments Anion Gap (test code = 71702-5) 18.3 8-16 [facility] urea nitrogen measurement (mass/volume)2020-06-05 09:20:00* Test Item Value Reference Range Interpretation Comments Blood Urea Nitrogen (test code = 3094-0) 23 7-26 [facility] creatinine measurement (mass/volume)2020-06-05 09:20:00* Test Item Value Reference Range Interpretation Comments Creatinine (test code = 2160-0) 1.37 0.57-1.11 [facility] urea nitrogen/creatinine mass dagbh7572-51-82 09:20:00* Test Item Value Reference Range Interpretation Comments BUN/Creatinine Ratio (test code = 3097-3) 17 6-25 [facility] HospitalEstimated glomerular filtration rate (GFR) exkzvoduzrrro7162-29-08 09:20:00* Test Item Value Reference Range Interpretation Comments Estimat Glomerular Filtration Rate (test code = 065096617) 37 >60 Ranges were taken from the National Kidney Disease Education Program and the [facility] [employer] literature.Reference ranges:60 or greater: Hwtxnx08-94 ( for 3 consecutive months): Chronic kidney disease 15 or less: Kidney failureHouston Methodist Baytown HospitalGlucose uaplhohefhz2816-00-70 09:20:00* Test Item Value Reference Range Interpretation Comments Glucose Level (test code = FVH1020) 219 74-118 [facility] calcium measurement (mass/volume)2020-06-05 09:20:00* Test Item Value Reference Range Interpretation Comments Calcium Level (test code = 31599-5) 10.0 8.4-10.2 [facility] HospitalFluoroscopic procedure less than one hour gtkcxakn3199-02-07 09:20:00* Test Item Value Reference Range Interpretation Comments Lactic Acid Level (test code = Lactic Acid Level) 2.0 0.5- 2.0 [facility] plasma total bilirubin measurement (mass/volume)2020-06-05 09:20:00* Test Item Value Reference Range Interpretation Comments Total Bilirubin (test code = 1975-2) 0.8 0.2-1.2 [facility] HospitalFluoroscopic procedure less than one hour ebdxxhtm2767-52-18 09:20:00* Test Item Value Reference Range Interpretation Comments Aspartate Amino Transf (AST/SGOT) (test code = Aspartate Amino Transf (AST/SGOT)) 16 5-34 [facility] or plasma alanine aminotransferase measurement (enzymatic activity/volume)2020-06-05 09:20:00* Test Item Value Reference Range Interpretation Comments Alanine Aminotransferase (ALT/SGPT) (test code = 1742-6) 16 0-55 [facility] plasma protein measurement (mass/volume)2020-06-05 09:20:00* Test Item Value Reference Range Interpretation Comments Total Protein (test code = 2885-2) 7.7 6.5-8.1 [facility] albumin measurement (mass/volume)2020-06-05 09:20:00* Test Item Value Reference Range Interpretation Comments Albumin (test code = 1751-7) 4.5 3.5-5.0 [facility] HospitalPlasma globulin measurement (mass/volume) 2020-06-05 09:20:00* Test Item Value Reference Range Interpretation Comments Globulin (test code = 67448-0) 3.2 2.3-3.5 [facility] albumin/globulin mass oaagt7676-71-98 09:20:00* Test Item Value Reference Range Interpretation Comments Albumin/Globulin Ratio (test code = 1759-0) 1.4 0.8-2.0 [facility] plasma alkaline phosphatase measurement (enzymatic activity/volume)2020-06-05 09:20:00* Test Item Value Reference Range Interpretation Comments Alkaline Phosphatase (test code = 6768-6) 95 40-150 [facility] HospitalBNP Koq-mOdc3118-37-07 09:20:00* Test Item Value Reference Range Interpretation Comments B-Type Natriuretic Peptide (test code = 29370-8) 183.4 0-100 [facility] or plasma creatine kinase measurement (enzymatic activity/volume)2020-06-05 09:20:00* Test Item Value Reference Range Interpretation Comments Creatine Kinase (test code = 2157-6) 43 29-168 [facility] plasma creatine kinase MB measurement (mass/volume)2020-06-05 09:20:00* Test Item Value Reference Range Interpretation Comments Creatine Kinase MB (test code = 26647-8) 4.60 0-5.0 [facility] HospitalTroponin I measurement by highly sensitive enzyme dmuhvuqsmke8238-86-24 09:20:00* Test Item Value Reference Range Interpretation Comments Troponin I (test code = 51303-5) 0.007 0-0.300 [facility] HospitalFluoroscopic procedure less than one hour mpucwlgv0689-42-30 10:38:00* Test Item Value Reference Range Interpretation Comments Coronavirus (PCR) (test code = Coronavirus (PCR)) NOT DETECTED NOTD ETECTED [employer] SARS-CoV-2 assay is a nucleic amplification test intended for the qualitative detection of RNA from SARS-CoV-2 from nasopharyngeal (BODY PAINTER) specimens . It is used under Emergency Use Authorization (EUA) by FDA.A positive result is indicative of the presence of SARS-CoV-2 RNA. Clinical correlation with patient history and other diagnostic information is necessary to determine patient infe ction status.A negative (Not Detected) result does not preclude SARS-CoV-2 infec tion. Clinical Correlation with patient history and other diagnostic information should be used in patient management decisions.Invalid: Unable to generate a va lid result on this specimen. Please submit a new specimen for reprat testing oc clinically indicated.Tesing performed by:[facility] [id number] [place] [id number], Ellis Zhang MD, PhD [facility] SINGLE (PORTABLE)2020-05-24 08:50:00 [place] [address] Patient Name: ANDER RAO MR #: [id number] : 1940 Age/Sex: 79/F Req #: [id number] Adm Physician: Ordered by: ANGELES ROMAN MD Report #: [id number] Location: ER Room/Bed: Procedure: [id number] DX/CHEST SING LE (PORTABLE) Exam Date: 05/24/20 Exam Time: 0820 REPORT STATUS: Signed EXAMINATION: CHEST SINGLE (PORTABLE) INDICATION: Chest pain COMPARISON: None FINDINGS: LINES/TUBES:EKG leads overlie the chest. LUNGS:The lungs are well-inflated. 9 mm high density right upper lung nodule, likely a calcified granuloma. No focal consolidation or pulmonary edema. PLEURA:No p leural effusion or pneumothorax. MEDIASTINUM:The cardiomediastinal silhouet te appears normal in size and shape. BONES/SOFT TISSUES:No acute osseous in jury. ABDOMEN:No free air under the diaphragm. IMPRESSION: No fo baltazar pneumonia or pulmonary edema. Signed by: Chaitanya Lund MD on 05/24/2020 8: 53 AM Dictated By: CHAITANYA LUND MD 2 Transcribed By: SIDNEY on 05/24/20852 COPY TO: ANGELES HARMON MD Activated partial thromboplastin time (aPTT) in platelet poor plasma by coagulation dvuuf6230-99-91 08:00:00* Test Item Value Reference Range Interpretation Comments Activated Partial Thromboplast Time (test code = 07538-2) 27.2 23.8-35.5 [facility]
--- NOTE | 2020-06-05 14:26 | Diagnostic Imaging Report ---
ADDENDUM #1 The ciritical findings were communicated to Dr. Orly Soto at 2:10 PM on 06/05/2020. Signed by: Carrillo Sandhu MD on 06/05/2020 2:56 PM ORIGINAL REPORT EXAM: CT Chest WITH contrast 06/05/2020 1:29 PM INDICATION: Chest pain clinically concerning for pulmonary embolism. COMPARISON: None TECHNIQUE: Chest was scanned utilizing a multidetector helical scanner from the lung apex through the level of the adrenal glands with administration of IV contrast. Coronal and sagittal reformations were obtained. Routine protocol was performed. IV CONTRAST: 100 mL of Omnipaque 300 COMPLICATIONS: None RADIATION DOSE: Total DLP: 536.55 mGy*cm Estimated effective dose: (DLP x 0.014 x size factor) mSv CTDIvol has been reviewed. It is below the limits set by the Radiation Protocol Committee (RPC). Dose modulation, iterative reconstruction, and/or weight based adjustment of the mA/kV was utilized to reduce the radiation dose to as low as reasonably achievable. FINDINGS: LINES/ TUBES: None. LUNGS AND AIRWAYS: There is a calcified 9 mm granuloma in the left upper lobe with surrounding groundglass opacity. There is by basilar atelectasis. The central airways are patent and the trachea is midline. VASCULAR: There is a large embolus which extends from the pulmonary trunk bifurcation into the main, segmental and subsegmental pulmonary arteries. The pulmonary trunk is distended measuring approximately 3.5 cm. There is evidence of right heart strain. The ascending and descending aorta have normal caliber and enhancement measuring approximately 3.3 cm and 2.3 cm, respectively. PLEURA: The pleural spaces are clear. HEART AND MEDIASTINUM: The thyroid gland is normal. No mediastinal, hilar or axillary lymphadenopathy. The heart is normal in size with evidence of right heart strain. There is no pericardial effusion. UPPER ABDOMEN: There is mild sclerotic calcification of the abdominal aorta and its proximal branch vessels. There is a partially imaged right renal cyst. There are multiple calcified gallstones with no evidence of cholecystitis. BONES: The visualized bony thorax is within normal limits. SOFT TISSUES: Unremarkable. IMPRESSION: 1. Large saddle embolism extending from the pulmonary trunk bifurcation into the main, segmental and subsegmental pulmonary arteries with findings suggestive of right heart strain. 2. Indeterminate 9 mm granuloma in the left upper lobe with surrounding groundglass opacity. Consider follow-up chest CT in 3 months. 3. Cholelithiasis without evidence of cholecystitis. This findings were communicated to Dr. Orly Florez at 2:10 PM on 06/05/2020. Signed by: Carrillo Sandhu MD on 06/05/2020 2:23 PM
[2020-06-05] MEDS ORDERED: LISINOPRIL10 MG PO (15:25)
[2020-06-05] MEDS ORDERED: METOPROLOL TAR100 MG PO (15:25)
[2020-06-05 15:47] VITALS: BP 153/76
[2020-06-05 15:50] VITALS: BP 153/76
--- NOTE | 2020-06-05 16:30 | NUR ---
Received pt from ED by wheelchair. pt is fully alert and oriented. No distress noted. Pt was oriented to room. Initial assessment done, bedside table in reach, call light in reach. will continue to monitor pt on unit.
[2020-06-05] MEDS ORDERED: RIVAROXABAN 10 MG TABLET PO SCH (17:00)
[2020-06-05] MEDS ORDERED: RIVAROXABAN 15 MG TABLET PO SCH (17:00)
[2020-06-05] MEDS: METOPROLOL TARTRATE 50 MG TAB PO SCH (17:06)
--- NOTE | 2020-06-05 18:06 | Consultation ---
DATE OF CONSULTATION: 06/05/2020 Cardiology Consult Note REASON FOR CONSULT: DVT and PE. CHIEF COMPLAINT: Shortness of breath. HISTORY OF PRESENT ILLNESS: The patient is an 79-year-old female, no previous cardiovascular history or history of DVT or PE, who presents with several weeks of worsening shortness of breath, was found to have extensive DVT of right lower extremity as well as large saddle embolus in the pulmonary arteries. Currently, the patient denies any chest pain, but does report shortness of breath, especially with exertion. Denies any history of recent surgery, travel, or immobility. PAST MEDICAL HISTORY: History of hypertension. SOCIAL HISTORY: Does not smoke, drink, or abuse drugs. FAMILY HISTORY: Noncontributory. REVIEW OF SYSTEMS: As per HPI, otherwise negative. OUTPATIENT MEDICATIONS: Reviewed. ALLERGIES: REVIEWED. ALLERGIES TO OXYCODONE. OBJECTIVE: VITAL SIGNS: Temperature afebrile, pulse 64, respiratory rate 24, blood pressure 134/68, saturating 99% on nasal cannula. GENERAL: An elderly female, no acute distress. CARDIOVASCULAR: Regular rate and rhythm. No murmurs, rubs, or gallops. LUNGS: Clear to auscultation anteriorly. ABDOMEN: Soft, nontender, nondistended. NEURO AND PSYCH: Alert and oriented to person, place, and time. Normal affect. EXTREMITIES: Right lower extremity has 1+ edema. Significant warm, some tenderness to palpation. No skin breakdown or changes consistent with chronic venous stasis. Has 2+ pulses bilateral dorsalis pedis arteries. INPATIENT MEDICATIONS: Reviewed. LABORATORY DATA: Reviewed. Hemoglobin 15, platelet count 251, creatinine 1.3. IMAGING DATA: Reviewed. Chest CT shows large saddle embolus extending from the pulmonary trunk bifurcation into the main segmental and subsegmental pulmonary arteries with findings suggestive of right heart strain. Lower extremity Dopplers show extensive deep venous thrombosis of the right [employer], BSA, SFV, and popliteal veins. TELEMETRY DATA: Reviewed shows normal sinus rhythm. ASSESSMENT AND PLAN: 1. Submassive pulmonary embolism. 2. Extensive deep venous thrombosis. PLAN: The patient is hemodynamically stable and does not have any ongoing symptoms. Continue full-dose Lovenox. Given the size of her PE and extensive DVT in the right lower extremity, she needs IVC filter as well as venous thrombectomy. We will plan for the procedure tomorrow to keep n.p.o. after midnight. Continue Lovenox and stop Xarelto. Thank you for this consult. We will continue to follow. MD ALFRED Catalan/JITENDRA /[id number]
--- NOTE | 2020-06-05 18:50 | NUR ---
WALKING ROUNDS PERFORMED, RECEIVED PT LAYING SEMI FOWLERS IN BED, AAOX3, RR EVEN AND NON-LABORED, ON ROOM AIR. NO S/SX OF DISTRESS NOTED. LEFT PT LAYING SEMI FOWLERS IN BED, BED IN LOW LOCKED POSITION, SIDE RAILS UPX2, CALL LIGHT AND PHONE WITHIN REACH.
[2020-06-05 19:45] VITALS: BP 135/61
[2020-06-05] MEDS ORDERED: PROMETHAZINE12.5 M1 PO (20:41)
[2020-06-05 21:11] LABS: CREATINE KINASE MB 3.8 ng/mL (0-5.0)
--- NOTE | 2020-06-05 21:17 | NUR ---
SPOKE WITH MD Renee RANDOLPH CONCERNING SLEEP AID AND MEDICATION TO TREAT HEADACHE. NEW ORDERS RECEIVED.
[2020-06-05 21:39] VITALS: BP 153/76
[2020-06-05] MEDS ORDERED: ENOXAPARIN INJ 80 MG/0.8 ML SYR SC SCH ×2 (22:00)
[2020-06-05] MEDS: ACETAMINOPHEN 325 MG TAB PO PRN (22:01)
[2020-06-05] MEDS: PROMETHAZINE HCL 25 MG TAB PO PRN (22:01)
[2020-06-06] VITALS (8 sets, daily range): BP systolic 116–161; BP diastolic 53–88
[2020-06-06 05:42] LABS: BASOPHILS # (AUTO) 0.1 (0.0-0.1); BASOPHILS % 0.7 % (0.0-1.0); EOSINOPHILS # (AUTO) 0.1 (0.0-0.4); HEMATOCRIT 44.7 % (34.2-44.1); HEMOGLOBIN 14.2 g/dL (12.0-16.0); LYMPHOCYTES # (AUTO) 2.4 (1.0-3.2); LYMPHOCYTES % 32.3 % (18.0-39.1); MEAN CORPUSCULAR HEMOGLOBIN 25.8 pg (28-32); MEAN CORPUSCULAR HGB CONC 31.8 g/dL (31-35); MEAN CORPUSCULAR VOLUME 81.3 fL (81-99); MONOCYTES # (AUTO) 0.7 (0.2-0.8); NEUTROPHILS # (AUTO) 4.2 (2.1-6.9); NEUTROPHILS % 56.7 % (38.7-80.0); PLATELET COUNT 209 x10e3/uL (140-360); RED CELL DISTRIBUTION WIDTH 16.3 % (11.7-14.4)
[2020-06-06 06:14] LABS: CREATINE KINASE MB 2.6 ng/mL (0-5.0)
[2020-06-06] MEDS: TRIAMTERENE/HCTZ 37.5-25 MG TAB PO SCH (09:12)
[2020-06-06] MEDS: METOPROLOL TARTRATE 50 MG TAB PO SCH ×2 (09:12→16:33)
[2020-06-06] MEDS: LISINOPRIL 10 MG TAB PO SCH (09:12)
[2020-06-06] MEDS: CEFEPIME 1GM/NS 0.9% 50 ML 50 ML IV SCH (11:17)
[2020-06-06] MEDS: ENOXAPARIN INJ 80 MG/0.8 ML SYR SC SCH ×2 (11:18→21:36)
[2020-06-06] MEDS ORDERED: SODIUM CHLORIDE 0.9% 250ML 250 ML ONE (11:49)
[2020-06-06] MEDS ORDERED: MIDAZOLAM HCL 2 MG/2 ML VIAL ONE (13:06)
[2020-06-06] MEDS ORDERED: LIDOCAINE HCL 2% LOCAL 20 ML VIAL ONE (13:07)
[2020-06-06] MEDS ORDERED: IOPAMIDOL 300MG/ML 50ML INFUS..BTL IV ONE (13:07)
[2020-06-06] MEDS ORDERED: SODIUM CHLORIDE 0.9% 500ML 500 ML ONE (13:07)
[2020-06-06] MEDS ORDERED: HEPARIN SOD/SOD CHLORIDE 1,000 ML ONE (13:07)
[2020-06-06] MEDS ORDERED: FENTANYL CITRATE/PF 100MCG/2 ML INJ ONE (13:07)
--- NOTE | 2020-06-06 13:50 | NUR ---
pt off unit for procedure.
[2020-06-06] MEDS ORDERED: ALTEPLASE RECOMBINANT 2 MG/2 ML VIAL ONE (14:33)
[2020-06-06] MEDS ORDERED: HEPARIN 25,000U/0.45% NS 250ML 0 ML IV ONE (14:35)
[2020-06-06] MEDS ORDERED: SODIUM CHLORIDE 0.9% 100 ML ONE (14:42)
--- NOTE | 2020-06-06 15:16 | NUR ---
pt returned from procedure to room resp even and unlabored. no c/o pain no distress noted.
--- NOTE | 2020-06-06 19:27 | NUR ---
REPORT GIVEN TO ONCOMING NURSE, WALKING ROUNDS COMPLETE.
[2020-06-06] MEDS: PROMETHAZINE HCL 25 MG TAB PO PRN (21:12)
[2020-06-06] MEDS: ACETAMINOPHEN 325 MG TAB PO PRN (21:12)
[2020-06-07] VITALS: BP 126/60
[2020-06-07 04:00] VITALS: BP 120/75
--- NOTE | 2020-06-07 06:20 | NUR ---
Pt up in bed, no distress. call light within reach. no needs voiced at this time.
--- NOTE | 2020-06-07 07:00 | NUR ---
BEDSIDE SHIFT REPORT FROM GIORGI ROSALES. PT DENIES NEEDS AT THIS TIME.
[2020-06-07] MEDS: LISINOPRIL 10 MG TAB PO SCH (08:41)
[2020-06-07] MEDS: TRIAMTERENE/HCTZ 37.5-25 MG TAB PO SCH (08:41)
[2020-06-07] MEDS: METOPROLOL TARTRATE 50 MG TAB PO SCH (08:41)
[2020-06-07 08:56] VITALS: BP 146/82
[2020-06-07 09:01] VITALS: BP 146/82
[2020-06-07] MEDS: ENOXAPARIN INJ 80 MG/0.8 ML SYR SC SCH (10:34)
[2020-06-07] MEDS: CEFEPIME 1GM/NS 0.9% 50 ML 50 ML IV SCH (10:34)
[2020-06-07] MEDS ORDERED: ELIQUIS5 MG PO (12:46)
[2020-06-07] MEDS ORDERED: ELIQUIS5 MG (12:47)
[2020-06-07 13:06] VITALS: BP 146/96
--- NOTE | 2020-06-07 13:30 | NUR ---
PT IN THE SHOWER. READY FOR DC.
--- NOTE | 2020-06-07 13:39 | Progress Note ---
DATE: Cardiology Progress Note SUBJECTIVE: The patient is feeling better. Has ambulated in the room. Denies any chest pain or shortness of breath. OBJECTIVE: VITAL SIGNS: Temperature is 98.2, heart rate 86, respirations 18, blood pressure is 146/82, and oxygen saturation is 100% on room air. GENERAL: Well appearing, in no apparent distress. CARDIOVASCULAR: Regular rate and rhythm. LUNGS: Clear to auscultation. ABDOMEN: Soft, nontender, and nondistended. EXTREMITIES: Trace right lower extremity edema. CARDIOVASCULAR MEDICATIONS: Reviewed. LABORATORY DATA: Reviewed. Telemetry monitoring was personally reviewed and shows sinus bradycardia. IMPRESSION: 1. Pulmonary embolism. 2. Deep venous thrombosis. 3. Hypertension. 4. Bradycardia. RECOMMENDATIONS: The patient is hemodynamically stable and remains asymptomatic. She is on room air. The patient's edema has improved and her shortness of breath has completely resolved. We will transition to Eliquis 10 mg p.o. b.i.d. for 7 days and transition that to 5 mg p.o. b.i.d. The patient may be discharged from a cardiovascular standpoint with outpatient followup. DO HONORIO Gilbert/JITENDRA /[id number]
== END 2020-06-07 14:30 | disposition home or self-care (01) | DRG 252 ==
LOC: ER 09:30 → ERHOLD 13:36 → MED/SURG 15:08
PROC: 06H03DZ Insertion of Intraluminal Device into Inferior Vena Cava, Percutaneous Approach (ICD-10-PCS; principal; 2020-06-06)
DX: I82.411 Acute embolism and thrombosis of right femoral vein (principal); I26.92 Saddle embolus of pulmonary artery without acute cor pulmonale; L03.115 Cellulitis of right lower limb; I82.431 Acute embolism and thrombosis of right popliteal vein; E78.5 Hyperlipidemia, unspecified; I12.9 Hypertensive chronic kidney disease with stage 1 through stage 4 chronic kidney disease, or unspecified chronic kidney disease; N18.2 Chronic kidney disease, stage 2 (mild); E78.00 Pure hypercholesterolemia, unspecified; Z88.5 Allergy status to narcotic agent; Z98.890 Other specified postprocedural states
CPT/HCPCS: 36415; 37191; 71260; 80053; 81001; 82550; 82553; 83605; 83880; 84484; 85025; 85610; 87040; 93971; 99152; 99284; C1766; C1769; J0692; J1644; J1650; J2001; J2250; J2997; J3010; J7030; J7040; J7050; Q9967; U0002

== ENCOUNTER 2021-04-21 18:21 | Emergency (ER) | payer MEDICARE ==
[~2021-04-21] VITALS: Ht 167.6 cm; Wt 79.4 kg
[~2021-04-21 18:21] MED LIST changes: +ELIQUIS5 MG; +ELIQUIS5 MG PO; +LISINOPRIL10 MG PO; +METOPROLOL TAR100 MG PO; +PROMETHAZINE12.5 M1 PO; +XARELTO10 MG PO
[2021-04-21] MEDS ORDERED: PHENAZOPYRIDINE HCL 100 MG TAB PO ONE (19:45)
[2021-04-21] MEDS ORDERED: PHENAZOPYRIDINE HCL 100 MG TAB ONE (19:51)
[2021-04-21 20:22] LABS: CLARITY,URINE CLEAR (CLEAR); COLOR,URINE YELLOW (YELLOW)
[2021-04-21 20:23] LABS: KETONES,URINE NEGATIVE (NEGATIVE); LEUKOCYTE ESTERASE ,URINE TRACE (NEGATIVE); NITRITE,URINE NEGATIVE (NEGATIVE); PROTEIN,URINE DIPSTICK NEGATIVE (NEGATIVE); URINE UROBILINOGEN 0.2 mg/dL (0.2 - 1)
[2021-04-21 20:37] LABS: BACTERIA,URINE RARE /HPF; RBC,URINE 0-5 /HPF (0-5); WBC,URINE (MAN) 0-5 /HPF (0-5)
[2021-04-21 20:38] LABS: EPITHELIAL CELLS,URINE FEW /LPF
[2021-04-21] MEDS ORDERED: CEPHALEXIN500 MG PO (21:00)
[2021-04-21] MEDS ORDERED: PYRIDIUM100 MG PO (22:19)
== END 2021-04-21 22:30 | disposition home or self-care (01) ==
LOC: ER 19:38
DX: N39.0 Urinary tract infection, site not specified (principal)
CPT/HCPCS: 81001; 99283

== ENCOUNTER 2021-06-26 13:50 | Inpatient (IN) | payer MEDICARE ==
[~2021-06-26] VITALS: Ht 167.6 cm; Wt 77.1 kg
[~2021-06-26 13:50] MED LIST changes: +CEPHALEXIN500 MG PO; +PYRIDIUM100 MG PO
[2021-06-26] MEDS ORDERED: SODIUM CHLORIDE 0.9% 1000ML 1,000 ML IV STA (14:21)
[2021-06-26 14:48] LABS: BASOPHILS % 0.3 % (0.0-1.0); EOSINOPHILS % 0.2 % (0.0-6.0); HEMATOCRIT 44.3 % (34.2-44.1); LYMPHOCYTES # (AUTO) 1.8 (1.0-3.2); LYMPHOCYTES % 14.2 % (18.0-39.1); MEAN CORPUSCULAR HEMOGLOBIN 25.8 pg (28-32); MEAN CORPUSCULAR HGB CONC 31.6 g/dL (31-35); MEAN CORPUSCULAR VOLUME 81.7 fL (81-99); MONOCYTES # (AUTO) 0.8 (0.2-0.8); MONOCYTES % 5.9 % (4.4-11.3); NEUTROPHILS % 78.9 % (38.7-80.0); PLATELET COUNT 209 x10e3/uL (140-360); RED BLOOD COUNT 5.42 x10e6/uL (3.6-5.1)
[2021-06-26 14:54] LABS: CLARITY,URINE SL CLOUDY (CLEAR); COLOR,URINE YELLOW (YELLOW); KETONES,URINE NEGATIVE (NEGATIVE); LEUKOCYTE ESTERASE ,URINE MODERATE (NEGATIVE); NITRITE,URINE NEGATIVE (NEGATIVE); PROTEIN,URINE DIPSTICK NEGATIVE (NEGATIVE); URINE UROBILINOGEN 0.2 mg/dL (0.2 - 1)
[2021-06-26 15:07] LABS: BACTERIA,URINE MANY /HPF; EPITHELIAL CELLS,URINE MANY /LPF; RBC,URINE 21-50 /HPF (0-5); RENAL EPITHELIAL CELLS,URINE RARE; TRANSITIONAL EPI CELLS,URINE MODERATE
[2021-06-26 15:47] LABS: INR 1.71; PROTHROMBIN TIME 20.4 seconds (11.9-14.5)
[2021-06-26 15:48] LABS: PARTIAL THROMBOPLASTIN TIME 40.1 seconds (23.8-35.5)
[2021-06-26 15:58] LABS: ALANINE AMINOTRANSFERASE 15 IU/L (0-55); ALBUMIN 4.2 g/dL (3.5-5.0); ALBUMIN/GLOBULIN RATIO 1.1 (0.8-2.0); ALKALINE PHOSPHATASE 74 IU/L (40-150); ANION GAP 15.6 mmol/L (8-16); BLOOD UREA NITROGEN 44 mg/dL (7-26); BUN/CREATININE RATIO 23 (6-25); CARBON DIOXIDE 21 mmol/L (22-29); CHLORIDE 105 mmol/L (98-107); CREATINE KINASE 63 IU/L (29-168); CREATININE, SERUM 1.94 mg/dL (0.57-1.11); EST GLOMERULAR FILTRATION RATE 25 ML/MIN (60-); GLUCOSE 160 mg/dL (74-118); POTASSIUM 4.6 mmol/L (3.5-5.1); SODIUM 137 mmol/L (136-145)
[2021-06-26] MEDS ORDERED: CEFTRIAXONE 1 GM in SODIUM CHLORIDE 0.9% 50ML 50 ML IV ONE (16:00)
[2021-06-26] MEDS ORDERED: DEXTROSE 50% SYRINGE 50 ML IV PRN (16:15)
[2021-06-26] MEDS ORDERED: ONDANSETRON HCL INJ 2MG/ML 2ML 2 MG/ML VIAL IV PRN (16:15)
[2021-06-26] MEDS ORDERED: SODIUM CHLORIDE 0.9% 1000ML 1,000 ML IV SCH (16:15)
[2021-06-26] MEDS ORDERED: TRADJENTA5 MG PO (16:30)
[2021-06-26] MEDS ORDERED: HEPARIN SOD (PORCINE) 5,000 UNIT/ML VIAL IV ONE (16:30)
[2021-06-26] MEDS ORDERED: CYCLOBENZAPRINE5 MG PO (16:30)
[2021-06-26] MEDS ORDERED: HEPARIN 25,000 UNIT 1,200 UNIT in DEXTROSE 5% 250ML 250 ML IV SCH (16:30)
[2021-06-26] MEDS: INSULIN LISPRO 100 UNIT/1 ML 3ML VIAL SQ SCH ×2 (16:30→21:00)
[2021-06-26] MEDS ORDERED: MEROPENEM 1 GM in SODIUM CHLORIDE 0.9% 100 ML IV ONE (16:30)
[2021-06-26] MEDS ORDERED: HEPARIN 25,000 UNIT DRIP IV ONE (16:50)
[2021-06-26] MEDS ORDERED: NON-FORMULARY MEDICATION (Cyclobenzaprine Hcl (Flexeril) 5 MG) PO PRN (17:30)
[2021-06-26] MEDS ORDERED: PROMETHAZINE HCL 25 MG TAB PO PRN (17:30)
[2021-06-26] MEDS ORDERED: CYCLOBENZAPRINE HCL 10 MG TAB PO PRN (17:45)
[2021-06-26 18:16] VITALS: BP 125/59
[2021-06-26 18:24] VITALS: BP 125/59
[2021-06-26 18:27] VITALS: BP 125/59
[2021-06-26 20:00] VITALS: BP 136/54
[2021-06-27] VITALS (9 sets, daily range): BP systolic 93–115; BP diastolic 49–99
[2021-06-27 05:04] LABS: BASOPHILS % 0.5 % (0.0-1.0); EOSINOPHILS # (AUTO) 0.1 (0.0-0.4); EOSINOPHILS % 0.7 % (0.0-6.0); HEMATOCRIT 37.3 % (34.2-44.1); HEMOGLOBIN 12.1 g/dL (12.0-16.0); LYMPHOCYTES # (AUTO) 2.2 (1.0-3.2); LYMPHOCYTES % 26.8 % (18.0-39.1); MEAN CORPUSCULAR HEMOGLOBIN 26.1 pg (28-32); MEAN CORPUSCULAR HGB CONC 32.4 g/dL (31-35); MEAN CORPUSCULAR VOLUME 80.6 fL (81-99); MONOCYTES # (AUTO) 0.7 (0.2-0.8); MONOCYTES % 9.1 % (4.4-11.3); NEUTROPHILS # (AUTO) 5.1 (2.1-6.9); NEUTROPHILS % 62.4 % (38.7-80.0); PLATELET COUNT 145 x10e3/uL (140-360); RED BLOOD COUNT 4.63 x10e6/uL (3.6-5.1); RED CELL DISTRIBUTION WIDTH 16.7 % (11.7-14.4)
[2021-06-27 05:23] LABS: ALBUMIN 3.2 g/dL (3.5-5.0); ALBUMIN/GLOBULIN RATIO 1.1 (0.8-2.0); CALCIUM 8.8 mg/dL (8.4-10.2); CREATININE, SERUM 1.44 mg/dL (0.57-1.11)
[2021-06-27] MEDS: MEROPENEM 500 MG in SODIUM CHLORIDE 0.9% 50ML 50 ML IV SCH ×2 (06:46→16:57)
[2021-06-27] MEDS: (Linagliptin (Tradjenta) 5 MG) PO SCH (09:00)
[2021-06-27] MEDS: METOPROLOL TARTRATE 50 MG TAB PO SCH (09:19)
[2021-06-27] MEDS: LISINOPRIL 10 MG TAB PO SCH (09:19)
[2021-06-27] MEDS: INSULIN LISPRO 100 UNIT/1 ML 3ML VIAL SQ SCH ×4 (09:20→22:15)
[2021-06-27] MEDS: TRIAMTERENE/HCTZ 37.5-25 MG TAB PO SCH (11:03)
[2021-06-27 16:20] LABS: CREATINE KINASE 71 IU/L (29-168)
[2021-06-27] MEDS: APIXAB 2.5 MG TABLET PO SCH (16:57)
[2021-06-28] VITALS: BP 103/50
[2021-06-28 04:00] VITALS: BP 139/52
[2021-06-28 05:03] LABS: BASOPHILS % 0.4 % (0.0-1.0); EOSINOPHILS # (AUTO) 0.1 (0.0-0.4); EOSINOPHILS % 1.4 % (0.0-6.0); HEMATOCRIT 39.8 % (34.2-44.1); HEMOGLOBIN 12.3 g/dL (12.0-16.0); LYMPHOCYTES # (AUTO) 2.2 (1.0-3.2); LYMPHOCYTES % 29.7 % (18.0-39.1); MEAN CORPUSCULAR HEMOGLOBIN 25.8 pg (28-32); MEAN CORPUSCULAR HGB CONC 30.9 g/dL (31-35); MEAN CORPUSCULAR VOLUME 83.4 fL (81-99); MONOCYTES # (AUTO) 0.8 (0.2-0.8); MONOCYTES % 10.8 % (4.4-11.3); NEUTROPHILS # (AUTO) 4.3 (2.1-6.9); NEUTROPHILS % 57.4 % (38.7-80.0); PLATELET COUNT 155 x10e3/uL (140-360); RED BLOOD COUNT 4.77 x10e6/uL (3.6-5.1); RED CELL DISTRIBUTION WIDTH 16.7 % (11.7-14.4)
[2021-06-28 05:40] LABS: ANION GAP 13.2 mmol/L (8-16); CALCIUM 9.2 mg/dL (8.4-10.2); CREATININE, SERUM 1.22 mg/dL (0.57-1.11); POTASSIUM 4.2 mmol/L (3.5-5.1)
[2021-06-28] MEDS: MEROPENEM 500 MG in SODIUM CHLORIDE 0.9% 50ML 50 ML IV SCH (07:15)
[2021-06-28] MEDS: (Linagliptin (Tradjenta) 5 MG) PO SCH (07:46)
[2021-06-28] MEDS: LISINOPRIL 10 MG TAB PO SCH (08:22)
[2021-06-28] MEDS: METOPROLOL TARTRATE 50 MG TAB PO SCH (08:22)
[2021-06-28] MEDS: APIXAB 2.5 MG TABLET PO SCH (08:23)
[2021-06-28] MEDS: TRIAMTERENE/HCTZ 37.5-25 MG TAB PO SCH (08:23)
[2021-06-28] MEDS: INSULIN LISPRO 100 UNIT/1 ML 3ML VIAL SQ SCH (08:25)
[2021-06-28 08:27] VITALS: BP 109/47
[2021-06-28 11:18] VITALS: BP 109/47
[2021-06-28 12:09] VITALS: BP 134/49
== END 2021-06-28 14:46 | disposition home or self-care (01) | DRG 682 ==
LOC: ER 14:13 → ERHOLD 16:16 → MED/SURG2 17:44
DX: I12.9 Hypertensive chronic kidney disease with stage 1 through stage 4 chronic kidney disease, or unspecified chronic kidney disease (principal); I26.99 Other pulmonary embolism without acute cor pulmonale; I82.403 Acute embolism and thrombosis of unspecified deep veins of lower extremity, bilateral; N17.9 Acute kidney failure, unspecified; N39.0 Urinary tract infection, site not specified; N18.30 Chronic kidney disease, stage 3 unspecified; Z86.718 Personal history of other venous thrombosis and embolism; Z79.01 Long term (current) use of anticoagulants; Z20.822 Contact with and (suspected) exposure to COVID-19
CPT/HCPCS: 36415; 71045; 78580; 80048; 80053; 81001; 82550; 82553; 82948; 83735; 84484; 85025; 85379; 85610; 85730; 87086; 93005; 93970; 99251; 99284; A9540; J1644; J2185; J7030; J7050; U0002

== ENCOUNTER 2022-05-16 06:04 | Emergency (ER) | payer MEDICARE ==
[~2022-05-16] VITALS: Ht 167.6 cm; Wt 77.1 kg
[~2022-05-16 06:04] MED LIST changes: +CYCLOBENZAPRINE5 MG PO; +TRADJENTA5 MG PO
[2022-05-16 06:27] LABS: BASOPHILS % 0.4 % (0.0-1.0); EOSINOPHILS # (AUTO) 0.1 (0.0-0.4); EOSINOPHILS % 0.8 % (0.0-6.0); HEMATOCRIT 48.3 % (34.2-44.1); HEMOGLOBIN 15.8 g/dL (12.0-16.0); LYMPHOCYTES # (AUTO) 2.9 (1.0-3.2); MEAN CORPUSCULAR HEMOGLOBIN 26.8 pg (28-32); MEAN CORPUSCULAR HGB CONC 32.7 g/dL (31-35); MEAN CORPUSCULAR VOLUME 81.9 fL (81-99); MONOCYTES # (AUTO) 0.8 (0.2-0.8); MONOCYTES % 7.8 % (4.4-11.3); NEUTROPHILS # (AUTO) 6.1 (2.1-6.9); NEUTROPHILS % 61.9 % (38.7-80.0); PLATELET COUNT 217 x10e3/uL (140-360); RED CELL DISTRIBUTION WIDTH 15.9 % (11.7-14.4)
[2022-05-16 07:01] LABS: ALBUMIN 3.8 g/dL (3.5-5.0); ALBUMIN/GLOBULIN RATIO 0.9 (0.8-2.0); CREATININE, SERUM 1.23 mg/dL (0.57-1.11)
[2022-05-16 07:54] LABS: CLARITY,URINE HAZY (CLEAR); COLOR,URINE YELLOW (YELLOW); KETONES,URINE NEGATIVE (NEGATIVE); LEUKOCYTE ESTERASE ,URINE TRACE (NEGATIVE); NITRITE,URINE NEGATIVE (NEGATIVE); PROTEIN,URINE DIPSTICK NEGATIVE (NEGATIVE); URINE UROBILINOGEN 0.2 mg/dL (0.2 - 1)
[2022-05-16 08:05] LABS: EPITHELIAL CELLS,URINE MANY /LPF
[2022-05-16 08:06] LABS: BACTERIA,URINE MODERATE /HPF
== END 2022-05-16 09:06 | disposition home or self-care (01) ==
LOC: ER 06:05
DX: R00.2 Palpitations (principal); I10 Essential (primary) hypertension; E11.65 Type 2 diabetes mellitus with hyperglycemia; E78.5 Hyperlipidemia, unspecified; E78.00 Pure hypercholesterolemia, unspecified; Z86.718 Personal history of other venous thrombosis and embolism
CPT/HCPCS: 36415; 71045; 80053; 81001; 84484; 85025; 87086; 93005; 99284

== ENCOUNTER 2022-08-13 02:00 | Emergency (ER) | payer MEDICARE ==
[~2022-08-13] VITALS: Ht 167.6 cm; Wt 77.1 kg
== END 2022-08-13 02:35 | disposition home or self-care (01) ==
LOC: ER 02:07
DX: R04.0 Epistaxis (principal); E11.22 Type 2 diabetes mellitus with diabetic chronic kidney disease; I12.9 Hypertensive chronic kidney disease with stage 1 through stage 4 chronic kidney disease, or unspecified chronic kidney disease; N18.9 Chronic kidney disease, unspecified; E78.5 Hyperlipidemia, unspecified; Z86.718 Personal history of other venous thrombosis and embolism; Z86.711 Personal history of pulmonary embolism; Z95.820 Peripheral vascular angioplasty status with implants and grafts; Z88.5 Allergy status to narcotic agent; Z88.8 Allergy status to other drugs, medicaments and biological substances
CPT/HCPCS: 99283